=== PATIENT | male | born 1980 | race Caucasian/White ===

== ENCOUNTER 2020-10-17 20:37 | Emergency (ER) | payer OTHER, MEDICAID ==
[~2020-10-17] VITALS: Ht 172.7 cm; Wt 81.6 kg
--- NOTE | 2020-10-17 20:37 | NUR ---
PT CINDI JEWELL, PREBOOK. TAKEN TO CHAIR
[2020-10-17 20:46] VITALS: BP 125/87
--- NOTE | 2020-10-17 20:50 | NUR ---
PT CINDI IVEY FOR PRE-BOOK EVALUATION
--- NOTE | 2020-10-17 21:53 | NUR ---
PT TAKEN TO RADIOLOGY
[2020-10-17 23:15] VITALS: BP 125/87
--- NOTE | 2020-10-17 23:16 | NUR ---
Patient discharged with v/s stable. Written and verbal after care instructions given and explained. Patient verbalized understanding. Police with in custody. All questions addressed prior to discharge. Advised to follow up with PMD.
== END 2020-10-17 23:16 ==
LOC: MED 20:37
DX: S01.91XA Laceration without foreign body of unspecified part of head, initial encounter (principal); M79.631 Pain in right forearm; Z02.89 Encounter for other administrative examinations; W22.8XXA Striking against or struck by other objects, initial encounter; Y93.89 Activity, other specified; Y92.89 Other specified places as the place of occurrence of the external cause; Y99.8 Other external cause status
CPT/HCPCS: 70450; 73090; 90471; 90715; 99284